=== PATIENT | female | born 1980 | race Caucasian/White ===

== ENCOUNTER 2018-04-20 12:15 | Emergency (ER) | payer OTHER ==
--- NOTE | 2018-04-20 12:39 | ED ---
Abdominal Pain/Female - HPI Summary HPI Summary: The pt is a 37 y/o female presenting to [facility] c/o bilateral flank pain worse on the L side since one hour ago. The pain rated 6/10 in severity radiates to the R side. She notes nausea but denies vomiting, diarrhea, vaginal discharge/ bleeding, and blood in urine. The sx are similar to those experienced in previous episodes of kidney stones. The pt took oxycodone and Zofran [employer]. - History of Current Complaint Chief Complaint: EDFlankPain Stated Complaint: FLANK PAIN Time Seen by Provider: 04/20/18 12:30 Hx Obtained From: Patient Onset/Duration: Sudden Onset Timing: Constant Severity Currently: Moderate Pain Intensity: 6 Pain Scale Used: 0-10 Numeric Location: Flank - Bilateral Alleviating Factor(s): Medications - Oxycodone and Zofran Associated Signs and Symptoms: Positive: Nausea. Negative: Urinary Symptoms - Blood in urine, Vaginal Bleeding, Vaginal Discharge, Vomiting, Diarrhea Allergies/Adverse Reactions: Allergies Allergy/AdvReac Type Severity Reaction Status Date / Time No Known Allergies Allergy Verified 04/20/18 12:26 Home Medications: Home Medications Flexeril 10 MG TAB* 10 mg PO DAILY 04/20/18 [History Confirmed 04/20/18] Hydroxyzine HCl 50 mg PO DAILY 04/20/18 [History Confirmed 04/20/18] Zofran 4 MG TAB 4 mg PO DAILY 04/20/18 [History Confirmed 04/20/18] PMH/Surg Hx/FS Hx/Imm Hx Previously Healthy: No Cardiovascular History: Denies: Hx Coronary Artery Disease History: Reports: Hx Kidney Stones Sensory History: Denies: Hx Deafness Opthamlomology History: Denies: Hx Legally Blind - Cancer History Cancer Type, Location and Year: None - Surgical History Surgery Procedure, Year, and Place: None Infectious Disease History: No Infectious Disease History: Denies: Traveled Outside the [place] in Last 30 Days - Family History Known Family History: Negative: Seizure Disorder, Blood Disorder - Social History Occupation: Employed Full-time Lives: Alone Alcohol Use: None Substance Use Type: Reports: Prescribed Hx Tobacco Use: Yes Smoking Status (MU): Current Every Day Smoker Review of Systems Positive: Abdominal Pain, Nausea. Negative: Vomiting, Diarrhea Genitourinary: Negative - Vaginal bleeding/ discharge; blood in urine Positive: flank pain - Bilateral All Other Systems Reviewed And Are Negative: Yes Physical Exam - Summary Physical Exam Summary: Appearance: Well appearing, no pain distress Skin: warm, dry, reflects adequate perfusion Head/face: normal Eyes: EOMI, MICHAEL ENT: normal Neck: supple, non-tender Respiratory: CTA, breath sounds present Cardiovascular: RRR, pulses symmetrical Abdomen: Tenderness to palpation of the LLQ , Bowel: present Musculoskeletal: normal, strength/ROM intact Neuro: normal, sensory motor intact, A&Ox3 Triage Information Reviewed: Yes Vital Signs On Initial Exam: Initial Vitals Temp Pulse Resp BP Pulse Ox 98.3 F 73 16 130/74 99 04/20/18 12:21 04/20/18 12:21 04/20/18 12:21 04/20/18 12:21 04/20/18 12:21 Vital Signs Reviewed: Yes Diagnostics - Vital Signs Vital Signs Temp Pulse Resp BP Pulse Ox 04/20/18 12:21 98.3 F 73 16 130/74 99 - Laboratory Result Diagrams: 04/20/18 12:51 04/20/18 12:51 Lab Statement: Any lab studies that have been ordered have been reviewed, and results considered in the medical decision making process. - CT Abd/Pel CT CT Interpretation Completed By: Radiologist - IMPRESSION: #. Nonobstructing 2 mm calyceal stone midpole LEFT kidney. Negative for ureteral stone or hydronephrosis. #. No acute inflammatory process of the bowel evident. #. Physiologic small volume of free fluid in the cul-de-sac. The ED physician reviewed this radiology report. Re-Evaluation - Re-Evaluation First Eval Re-Evaluation Time: 14:22 Change: Improved - Discussed the imaginh result and discharge plan with the pt. Pt is agrreable with the plan Abdominal Pain Fem Course/Dx - Course Course Of Treatment: A 37 year-old F presents to the ED with a CC of bilateral flank pain worse on the L side since one hour [employer]. The pain rated 6/10 in severity radiates to the R side. She notes nausea but denies vomiting, diarrhea , vaginal discharge/ bleeding, and blood in urine. The sx are similar to those experienced in previous episodes of kidney stones. The pt took oxycodone and Zofran [employer]. A physical exam revealed tenderness to palpation of the LLQ. An Abd/ Pel CT reveals a non-obstructing 2 mm calyceal stone midpole LEFT kidney and is negative for ureteral stone or hydronephrosis and also negative for acute bowel inflammation. In the ED course, pt was given Ketorolac 30 mg IV and N.s 0.9% 1000ml IV which improved the symptoms. Patient will be discharged with a final Dx of flank pain. I reffered the pt to Vamsi Cisse MD (urologist). The pt is agreeable with this plan. pt requesting pain medications - Diagnoses Differential Diagnosis: Positive: Constipation, Diverticulitis, Renal Colic, Urinary Tract Infection Provider Diagnoses: Flank pain Discharge - Sign-Out/Discharge Documenting (check all that apply): Patient Departure - DC - Discharge Plan Condition: Improved Disposition: HOME Prescriptions: Oxycodone HCl/Acetaminophen [Percocet] 1 tab PO TID #10 tab MDD 3 Patient Education Materials: Flank Pain (ED) Referrals: [facility] [Outside] - 3 Days No Primary Care Phys,NOPCP [Primary Care Provider] - Vamsi Castro MD [Medical Doctor] - As Soon As Possible (Follow up with the Urologist as soon as possible. ) Additional Instructions: Follow up with PCP in 3 days. Return to ED for any new or worsening symptoms - Billing Disposition and Condition Condition: IMPROVED Disposition: Home - Attestation Statements Document Initiated by Scribe: Yes Documenting Scribe: Liset Silva Provider For Whom Joeibe is Documenting (Include Credential): Dr. Sha Girard MD Scribe Attestation: ILiset, scribed for Dr. Sha Girard MD on 04/20/18 at 1623. Scribe Documentation Reviewed: Yes Provider Attestation: The documentation as recorded by the Liset [place] accurately reflects the service I personally performed and the decisions made by me, Dr. Sha Girard MD
[2018-04-20] MEDS ORDERED: Ketorolac INJ* 30 MG/ML 1 ML VIAL IV ONE (12:41)
[2018-04-20] MEDS ORDERED: NS 0.9% 1000 ML* 1,000 ML IV ONE (12:41)
[2018-04-20 13:01] LABS: ABS Basophils 0 10^3/ul (0-0.2); ABS Eosinophils 0.2 10^3/ul (0-0.6); ABS Lymphocytes 1.8 10^3/ul (1.0-4.8); ABS Monocytes 0.6 10^3/ul (0-0.8); ABS Neutrophils 7.4 10^3/ul (1.5-7.7); ABS Nucleated RBC 0 10^3/ul; Eosinophil % 2.4 % (0-6); Hematocrit 41 % (35-47); Hemoglobin 13.7 g/dl (12.0-16.0); Lymphocyte % 17.7 % (25-47); Mean Corpuscular HGB Conc 34 g/dl (31-36); Mean Corpuscular Hemoglobin 30 pg (27-31); Mean Corpuscular Volume 90 fL (80-97); Mean Platelet Volume 7.9 um3 (7.4-10.4); Nucleated Red Blood Cells % 0; Platelet Count 238 10^3/ul (150-450); Red Blood Count 4.53 10^6/ul (4.00-5.40); Red Cell Distribution Width 14 % (10.5-15); White Blood Count 10.1 10^3/ul (3.5-10.8)
[2018-04-20 13:14] LABS: Urine Appearance Clear; Urine Blood 2+ (Negative); Urine Color Yellow; Urine Ketones Negative (Negative); Urine Protein Negative (Negative); Urine Red Blood Cell 2+(6-10/hpf) (Absent); Urine Specific Gravity 1.018 (1.010-1.030); Urine Urobilinogen Negative (Negative); Urine White Blood Cell Absent (Absent)
[2018-04-20 13:17] LABS: EGFR Non-African American 85.2 (>60)
--- NOTE | 2018-04-20 13:43 | RAD ---
INDICATION: Bilateral flank pain. History of kidney stones with similar previous symptoms. COMPARISON: No relevant prior exams available on the [facility] PACS for comparison. TECHNIQUE: Multidetector CT images were obtained from the lung bases to the ischial tuberosities. No oral contrast administered. Assessment of the visceral limited without IV contrast. Multiplanar reformation. REPORT: VISUALIZED INFERIOR THORAX: Unremarkable visualized inferior thorax. LIVER / GALLBLADDER / PANCREAS / SPLEEN: Unremarkable unenhanced liver, gallbladder, pancreas, spleen. ALIMENTARY TRACT: Unremarkable unopacified upper GI, small bowel, appendix, and colon. Physiologic small volume of free fluid at the dependent pelvis. Negative for free air. Small fat-containing umbilical hernia without inflammatory change. MESENTERIC: Unremarkable. ADRENAL / GENITOURINARY: Normal adrenal glands. 2 mm nonobstructing calyceal stone midpole LEFT kidney. No focal renal lesions evident. Unremarkable nondilated ureters. Largely decompressed urinary bladder limiting assessment without suspicious finding. Unremarkable anteverted uterus and adnexal regions. RETROPERITONEAL: Negative for lymphadenopathy. VASCULAR: Unremarkable abdominal aorta and iliac arteries. Physiologic distention of the IVC. BONES: Unremarkable. SOFT TISSUE: Unremarkable. IMPRESSION: #. Nonobstructing 2 mm calyceal stone midpole LEFT kidney. Negative for ureteral stone or hydronephrosis. #. No acute inflammatory process of the bowel evident. #. Physiologic small volume of free fluid in the cul-de-sac.
[2018-04-20 14:55] VITALS: BP 112/71
== END 2018-04-20 14:42 | disposition home or self-care (01) ==
LOC: ED 12:15
DX: R10.32 Left lower quadrant pain (principal); R11.0 Nausea; N20.0 Calculus of kidney; Z87.442 Personal history of urinary calculi; F17.200 Nicotine dependence, unspecified, uncomplicated
CPT/HCPCS: 36415; 74176; 80053; 81003; 81015; 83690; 84702; 85025; 85730; 96374; 99282; J1885